=== PATIENT | male | born 1950 | race Caucasian/White ===

== ENCOUNTER 2017-11-12 14:04 | Inpatient (IN) | payer MEDICARE, MEDICAID ==
[~2017-11-12] VITALS: Ht 172.7 cm; Wt 73.0 kg
[~2017-11-12 14:04] MED LIST: BACTDSB PO
[2017-11-12 15:34] LABS: HEMATOCRIT 35.9 % (41-53); HEMOGLOBIN 12.4 g/dL (13.5-17.5); LYMPHOCYTES # (AUTO) 1.9 K/uL (1.0-4.8); LYMPHOCYTES % (AUTO) 19.8 % (22.0-44.0); MEAN CORPUSCULAR HEMOGLOBIN 30.6 pg (26.0-34.0); MEAN CORPUSCULAR HGB CONC 34.6 G/dL (31.0-37.0); MEAN CORPUSCULAR VOLUME 88 fL (80-100); MONOCYTES # (AUTO) 0.9 K/uL (0.1-1.0); MONOCYTES % (AUTO) 9.4 % (2.0-9.0); NEUTROPHILS # (AUTO) 5.7 K/uL (1.8-7.7); NEUTROPHILS % (AUTO) 60.8 % (40.0-70.0); PLATELET COUNT (AUTO) 214 K/uL (150-450); RED BLOOD CELL COUNT(AUTO) 4.06 MIL/uL (4.50-5.90); RED CELL DISTRIBUTION WIDTH 13.5 % (11.5-14.5)
[2017-11-12 15:49] LABS: ANION GAP 10 mmol/L (8-16); CALCIUM, TOTAL 8.7 mg/dL (8.8-10.5); CARBON DIOXIDE 23 mmol/L (22-29); CHLORIDE 105 mmol/L (98-107); CREATININE 1.62 mg/dL (0.60-1.30); GLOMERULAR FILTR. RATE CALC 42 mL/min (>60); GLUCOSE,RANDOM 96 mg/dL (70-110); POTASSIUM 4.9 mmol/L (3.5-5.1); SODIUM SERUM 138 mmol/L (136-145); UREA NITROGEN, BLOOD 39 mg/dL (7-18)
[2017-11-12] MEDS ORDERED: INSLAN SQ (15:50)
[2017-11-12] MEDS ORDERED: LISI-660 PO (15:50)
[2017-11-12 15:54] LABS: ALANINE AMINOTRANSFERASE 21 U/L (12-78); ALBUMIN 3.7 g/dL (3.4-5.0); ALKALINE PHOSPHATASE 74 U/L (46-116); ASPARTATE AMINOTRANSFERASE 15 U/L (15-37); BILIRUBIN,TOTAL 0.2 mg/dL (0.1-1.0); TOTAL PROTEIN, SERUM 7.6 g/dL (6.4-8.2)
[2017-11-12 16:57] LABS: GLUCOSE,POINT OF CARE 96 MG/DL (70-110)
[2017-11-12 17:20] LABS: AMPHET/METH SCREEN,URINE NEGATIVE (NEGATIVE); BARBITURATE SCREEN, URINE NEGATIVE (NEGATIVE); BENZODIAZEPINES SCREEN,URINE NEGATIVE (NEGATIVE); CANNABINOID SCREEN,URINE NEGATIVE (NEGATIVE); COCAINE SCREEN,URINE NEGATIVE (NEGATIVE); METHADONE SCREEN, URINE NEGATIVE (NEGATIVE); OPIATE SCREEN,URINE NEGATIVE (NEGATIVE)
[2017-11-12 17:21] LABS: PHENCYCLIDINE SCREEN,URINE NEGATIVE (NEGATIVE)
[2017-11-12] MEDS ORDERED: SULFAMETHOX/TRIMETH DS 800-160 MG/TABLET PO ONE (17:30)
[2017-11-12 18:20] LABS: APPEARANCE,URINE CLEAR (CLEAR); GLUCOSE, URINE (UA) NEGATIVE (NEGATIVE); OCCULT BLOOD,URINE TRACE (NEGATIVE); PH,URINE 5.5 (5.0-8.0); PROTEIN,URINE SEE CONFIRM (NEGATIVE)
[2017-11-12 18:21] LABS: BILIRUBIN,URINE NEGATIVE (NEGATIVE); KETONES,URINE NEGATIVE (NEGATIVE); LEUKOCYTE ESTERASE ,URINE NEGATIVE (NEGATIVE); NITRATE,URINE NEGATIVE (NEGATIVE); UROBILINOGEN,URINE 0.2 mg/dL (<=1.0)
[2017-11-12] MEDS ORDERED: ZOLPIDEM TARTRATE 10 MG TABLET PO PRN (18:30)
[2017-11-12] MEDS ORDERED: HALOPERIDOL 5 MG TABLET PO PRN (18:30)
[2017-11-12] MEDS ORDERED: LORazepam 2 MG TABLET PO PRN (18:30)
[2017-11-12 19:30] VITALS: BP 130/72
[2017-11-12 19:52] LABS: SULFOSALICYLIC ACID,URINE Negative (Negative)
[2017-11-12 19:53] LABS: BACTERIA,URINE None Seen /HPF (None Seen); RBC,URINE 0-2 /HPF (0-2); SQUAMOUS EPITHELIAL CELL,UR Rare /LPF (None Seen); WBC,URINE 0-2 /HPF (0-5)
[2017-11-12] MEDS ORDERED: ACETAMINOPHEN 325 MG TABLET PO PRN (20:00)
[2017-11-12] MEDS ORDERED: ALBUTEROL SULFATE HFA 90 MCG/PUFF 8 GM INHALER IH PRN (20:00)
[2017-11-12] MEDS ORDERED: BACITRACIN 28.4 GM OINTMENT TP PRN (20:00)
[2017-11-12] MEDS ORDERED: LOPERAMIDE HCL 2 MG CAPSULE PO PRN (20:00)
[2017-11-12] MEDS ORDERED: CloNIDine HCL 0.1 MG TABLET PO PRN (20:00)
[2017-11-12] MEDS ORDERED: ONDANSETRON HCL 4 MG TABLET PO PRN (20:00)
[2017-11-12] MEDS ORDERED: BENZOCAINE/MENTHOL LOZENGE MM PRN (20:00)
[2017-11-12] MEDS ORDERED: MAGNESIUM HYDROXIDE SUSPENSION 30 ML UDCUP PO PRN (20:00)
[2017-11-12] MEDS ORDERED: MAG HYDROX/AL HYDROX/SIMETH ES 30 ML SUSPENSION UDCUP PO PRN (20:00)
[2017-11-12] MEDS ORDERED: PETROLATUM,WHITE 71 GM JELLY TP PRN (20:00)
[2017-11-12] MEDS ORDERED: IBUPROFEN 600 MG TABLET PO PRN (20:00)
[2017-11-13] MEDS ORDERED: DEXTROSE 50%-WATER 25 GM/50 ML SYRINGE IVP PRN (08:15)
[2017-11-13] MEDS: DOCUSATE SODIUM 100 MG CAPSULE PO SCH (09:00)
[2017-11-13] MEDS: OMEPRAZOLE 20 MG CAPSULE PO SCH (09:41)
[2017-11-13] MEDS: LISINOPRIL 5 MG TABLET PO SCH (09:41)
[2017-11-13] MEDS: SULFAMETHOX/TRIMETH DS 800-160 MG/TABLET PO SCH ×2 (09:42→16:56)
[2017-11-13] MEDS: MUPIROCIN CALCIUM 2% 22 GM OINTMENT TP SCH ×2 (09:43→16:56)
[2017-11-13 09:50] VITALS: BP 151/68
[2017-11-13 11:38] LABS: GLUCOMETER DEV NAME(LOC) 3EX 1; GLUCOSE,POINT OF CARE 128 MG/DL (70-110)
[2017-11-13 16:53] LABS: GLUCOMETER DEV NAME(LOC) 3EX 1; GLUCOSE,POINT OF CARE 114 MG/DL (70-110)
[2017-11-13 17:00] VITALS: BP 138/70
[2017-11-13 20:32] LABS: GLUCOMETER DEV NAME(LOC) 3EX 1; GLUCOSE,POINT OF CARE 122 MG/DL (70-110)
[2017-11-14 06:48] LABS: GLUCOMETER DEV NAME(LOC) 3EX 1; GLUCOSE,POINT OF CARE 162 MG/DL (70-110)
[2017-11-14] MEDS: INSULIN LISPRO 100 UNITS/ML SQ PRN (07:07)
[2017-11-14 07:16] LABS: HEMOGLOBIN A1C 7.3 % (4.5-6.2)
[2017-11-14 07:25] LABS: CALCIUM, TOTAL 8.8 mg/dL (8.8-10.5); CHOL/HDL RATIO 4.8 (4.2-7.3); CREATININE 1.6 mg/dL (0.60-1.30); POTASSIUM 4.9 mmol/L (3.5-5.1); THYROID STIMULATING HORMONE 2.43 uIU/mL (0.36-3.74)
[2017-11-14 09:00] VITALS: BP 101/58
[2017-11-14] MEDS: SULFAMETHOX/TRIMETH DS 800-160 MG/TABLET PO SCH ×2 (09:00→16:05)
[2017-11-14] MEDS: LISINOPRIL 5 MG TABLET PO SCH (09:00)
[2017-11-14] MEDS: DOCUSATE SODIUM 100 MG CAPSULE PO SCH (09:00)
[2017-11-14] MEDS: MULTIVITAMINS WITH MINERALS, THERAPEUTIC TABLET PO SCH (09:00)
[2017-11-14] MEDS: OMEPRAZOLE 20 MG CAPSULE PO SCH (09:00)
[2017-11-14] MEDS: MUPIROCIN CALCIUM 2% 22 GM OINTMENT TP SCH ×2 (09:00→16:06)
[2017-11-14 12:03] LABS: GLUCOMETER DEV NAME(LOC) 3EX 1; GLUCOSE,POINT OF CARE 128 MG/DL (70-110)
[2017-11-14 16:00] VITALS: BP 125/56
[2017-11-14 16:13] LABS: GLUCOMETER DEV NAME(LOC) 3EX 1; GLUCOSE,POINT OF CARE 178 MG/DL (70-110)
[2017-11-14 20:37] LABS: GLUCOMETER DEV NAME(LOC) 3EX 1; GLUCOSE,POINT OF CARE 143 MG/DL (70-110)
[2017-11-15 06:28] LABS: GLUCOMETER DEV NAME(LOC) 3EX 1; GLUCOSE,POINT OF CARE 134 MG/DL (70-110)
[2017-11-15 06:42] LABS: % IRON SATURATION 29.1 % (30-44)
[2017-11-15] MEDS: INSULIN LISPRO 100 UNITS/ML SQ PRN (07:01)
[2017-11-15 08:12] VITALS: BP 112/60
[2017-11-15] MEDS: SULFAMETHOX/TRIMETH DS 800-160 MG/TABLET PO SCH ×2 (08:28→16:35)
[2017-11-15] MEDS: CHOLECALCIFEROL (VIT D3) 1,000 UNITS TABLET PO SCH (08:28)
[2017-11-15] MEDS: DOCUSATE SODIUM 100 MG CAPSULE PO SCH (08:28)
[2017-11-15] MEDS: LISINOPRIL 5 MG TABLET PO SCH (08:28)
[2017-11-15] MEDS: OMEPRAZOLE 20 MG CAPSULE PO SCH (08:28)
[2017-11-15] MEDS: ESCITALOPRAM OXALATE 10 MG TABLET PO SCH (08:28)
[2017-11-15] MEDS: MULTIVITAMINS WITH MINERALS, THERAPEUTIC TABLET PO SCH (08:28)
[2017-11-15] MEDS: MUPIROCIN CALCIUM 2% 22 GM OINTMENT TP SCH ×2 (08:39→16:35)
[2017-11-15 11:27] LABS: GLUCOMETER DEV NAME(LOC) 3EX 1; GLUCOSE,POINT OF CARE 116 MG/DL (70-110)
[2017-11-15 17:17] LABS: GLUCOMETER DEV NAME(LOC) 3EX 1; GLUCOSE,POINT OF CARE 119 MG/DL (70-110)
[2017-11-15 17:31] VITALS: BP 121/64
[2017-11-15 20:23] LABS: GLUCOMETER DEV NAME(LOC) 3EX 1; GLUCOSE,POINT OF CARE 152 MG/DL (70-110)
[2017-11-16 05:28] LABS: GLUCOMETER DEV NAME(LOC) 3EX 1; GLUCOSE,POINT OF CARE 138 MG/DL (70-110)
[2017-11-16 08:02] VITALS: BP 118/79
[2017-11-16] MEDS: ESCITALOPRAM OXALATE 10 MG TABLET PO SCH (08:36)
[2017-11-16] MEDS: SULFAMETHOX/TRIMETH DS 800-160 MG/TABLET PO SCH ×2 (08:37→16:19)
[2017-11-16] MEDS: MULTIVITAMINS WITH MINERALS, THERAPEUTIC TABLET PO SCH (08:37)
[2017-11-16] MEDS: LISINOPRIL 5 MG TABLET PO SCH (08:37)
[2017-11-16] MEDS: CHOLECALCIFEROL (VIT D3) 1,000 UNITS TABLET PO SCH (08:37)
[2017-11-16] MEDS: DOCUSATE SODIUM 100 MG CAPSULE PO SCH (08:37)
[2017-11-16] MEDS: OMEPRAZOLE 20 MG CAPSULE PO SCH (09:00)
[2017-11-16] MEDS: MUPIROCIN CALCIUM 2% 22 GM OINTMENT TP SCH ×2 (09:02→16:19)
[2017-11-16 11:22] LABS: GLUCOMETER DEV NAME(LOC) 3EX 1; GLUCOSE,POINT OF CARE 110 MG/DL (70-110)
[2017-11-16 17:46] VITALS: BP 128/66
[2017-11-17 03:59] VITALS: BP 137/75
[2017-11-17 06:28] LABS: GLUCOMETER DEV NAME(LOC) 3EX 1; GLUCOSE,POINT OF CARE 158 MG/DL (70-110)
[2017-11-17] MEDS: INSULIN LISPRO 100 UNITS/ML SQ PRN ×2 (06:43→11:26)
[2017-11-17] MEDS: DOCUSATE SODIUM 100 MG CAPSULE PO SCH (08:46)
[2017-11-17] MEDS: SULFAMETHOX/TRIMETH DS 800-160 MG/TABLET PO SCH (08:46)
[2017-11-17] MEDS: OMEPRAZOLE 20 MG CAPSULE PO SCH (08:46)
[2017-11-17] MEDS: LISINOPRIL 5 MG TABLET PO SCH (08:46)
[2017-11-17] MEDS: MULTIVITAMINS WITH MINERALS, THERAPEUTIC TABLET PO SCH (08:47)
[2017-11-17] MEDS: CHOLECALCIFEROL (VIT D3) 1,000 UNITS TABLET PO SCH (08:47)
[2017-11-17] MEDS: ESCITALOPRAM OXALATE 10 MG TABLET PO SCH (08:49)
[2017-11-17] MEDS: MUPIROCIN CALCIUM 2% 22 GM OINTMENT TP SCH ×2 (08:51→16:56)
[2017-11-17 11:28] LABS: GLUCOMETER DEV NAME(LOC) 3EX 1; GLUCOSE,POINT OF CARE 154 MG/DL (70-110)
[2017-11-17] MEDS: GlipiZIDE 5 MG TABLET PO SCH (16:53)
[2017-11-17 19:25] VITALS: BP 144/68
[2017-11-18 03:31] VITALS: BP 167/73
[2017-11-18 06:44] LABS: CALCIUM, TOTAL 9.1 mg/dL (8.8-10.5); CREATININE 1.64 mg/dL (0.60-1.30); POTASSIUM 4.8 mmol/L (3.5-5.1)
[2017-11-18] MEDS: GlipiZIDE 5 MG TABLET PO SCH ×3 (06:46→20:08)
[2017-11-18] MEDS: INSULIN LISPRO 100 UNITS/ML SQ PRN (06:48)
[2017-11-18 07:02] LABS: GLUCOMETER DEV NAME(LOC) 3EX 1; GLUCOSE,POINT OF CARE 147 MG/DL (70-110)
[2017-11-18] MEDS: DOCUSATE SODIUM 100 MG CAPSULE PO SCH (08:13)
[2017-11-18] MEDS: ESCITALOPRAM OXALATE 20 MG TABLET PO SCH (08:13)
[2017-11-18] MEDS: MULTIVITAMINS WITH MINERALS, THERAPEUTIC TABLET PO SCH (08:14)
[2017-11-18] MEDS: OMEPRAZOLE 20 MG CAPSULE PO SCH (08:18)
[2017-11-18] MEDS: LISINOPRIL 5 MG TABLET PO SCH (08:18)
[2017-11-18] MEDS: CHOLECALCIFEROL (VIT D3) 1,000 UNITS TABLET PO SCH (08:18)
[2017-11-18] MEDS: MUPIROCIN CALCIUM 2% 22 GM OINTMENT TP SCH ×2 (08:35→17:00)
[2017-11-18 14:05] VITALS: BP 145/72
[2017-11-19 01:22] VITALS: BP 112/68
[2017-11-19 06:33] LABS: GLUCOMETER DEV NAME(LOC) 3EX 1; GLUCOSE,POINT OF CARE 140 MG/DL (70-110)
[2017-11-19] MEDS: GlipiZIDE 5 MG TABLET PO SCH ×2 (07:02→17:29)
[2017-11-19] MEDS: INSULIN LISPRO 100 UNITS/ML SQ PRN ×2 (07:03→12:13)
[2017-11-19 09:00] VITALS: BP 122/58
[2017-11-19] MEDS: DOCUSATE SODIUM 100 MG CAPSULE PO SCH (10:04)
[2017-11-19] MEDS: CHOLECALCIFEROL (VIT D3) 1,000 UNITS TABLET PO SCH (10:04)
[2017-11-19] MEDS: OMEPRAZOLE 20 MG CAPSULE PO SCH (10:04)
[2017-11-19] MEDS: MULTIVITAMINS WITH MINERALS, THERAPEUTIC TABLET PO SCH (10:04)
[2017-11-19] MEDS: ESCITALOPRAM OXALATE 20 MG TABLET PO SCH (10:04)
[2017-11-19] MEDS: LISINOPRIL 5 MG TABLET PO SCH (10:04)
[2017-11-19] MEDS: MUPIROCIN CALCIUM 2% 22 GM OINTMENT TP SCH ×2 (10:05→17:29)
[2017-11-19 12:09] LABS: GLUCOMETER DEV NAME(LOC) 3EX 1; GLUCOSE,POINT OF CARE 141 MG/DL (70-110)
[2017-11-19 17:13] VITALS: BP 113/50
[2017-11-20] MEDS: GlipiZIDE 5 MG TABLET PO SCH ×2 (06:45→16:16)
[2017-11-20] MEDS: DOCUSATE SODIUM 100 MG CAPSULE PO SCH (09:00)
[2017-11-20] MEDS: CHOLECALCIFEROL (VIT D3) 1,000 UNITS TABLET PO SCH (09:24)
[2017-11-20] MEDS: OMEPRAZOLE 20 MG CAPSULE PO SCH (09:24)
[2017-11-20] MEDS: MULTIVITAMINS WITH MINERALS, THERAPEUTIC TABLET PO SCH (09:24)
[2017-11-20] MEDS: LISINOPRIL 5 MG TABLET PO SCH (09:24)
[2017-11-20] MEDS: ESCITALOPRAM OXALATE 20 MG TABLET PO SCH (09:24)
[2017-11-20] MEDS: MUPIROCIN CALCIUM 2% 22 GM OINTMENT TP SCH ×2 (09:25→16:16)
[2017-11-20] MEDS: BACITRACIN 28.4 GM OINTMENT TP SCH ×2 (09:29→16:16)
[2017-11-20] MEDS: INSULIN LISPRO 100 UNITS/ML SQ PRN (12:05)
[2017-11-21 02:46] VITALS: BP 119/68
[2017-11-21] MEDS: GlipiZIDE 5 MG TABLET PO SCH (06:51)
[2017-11-21] MEDS: CHOLECALCIFEROL (VIT D3) 1,000 UNITS TABLET PO SCH (08:30)
[2017-11-21] MEDS: ESCITALOPRAM OXALATE 20 MG TABLET PO SCH (08:30)
[2017-11-21] MEDS: LISINOPRIL 5 MG TABLET PO SCH (08:31)
[2017-11-21] MEDS: DOCUSATE SODIUM 100 MG CAPSULE PO SCH (08:37)
[2017-11-21] MEDS: OMEPRAZOLE 20 MG CAPSULE PO SCH (08:37)
[2017-11-21] MEDS ORDERED: MULTIVITAMINS WITH IRON TABLET PO SCH (09:00)
[2017-11-21] MEDS: MUPIROCIN CALCIUM 2% 22 GM OINTMENT TP SCH (09:30)
[2017-11-21] MEDS: BACITRACIN 28.4 GM OINTMENT TP SCH (09:30)
[2017-11-21] MEDS ORDERED: ESCI20TA PO (09:40)
[2017-11-21] MEDS ORDERED: VITAD1000 PO (09:41)
[2017-11-21] MEDS ORDERED: BACI120O TP (09:41)
[2017-11-21] MEDS ORDERED: GLIP5 PO (09:42)
[2017-11-21] MEDS ORDERED: DSS100 PO (09:42)
[2017-11-21] MEDS ORDERED: MUPI15CR TP (09:43)
[2017-11-21] MEDS ORDERED: MVITFE PO (09:43)
[2017-11-21] MEDS ORDERED: OMEP20 PO (09:44)
== END 2017-11-21 11:00 | disposition home or self-care (01) | DRG 885 ==
LOC: EMS 14:13 → 3EI 18:36 → EMS 19:10
PROVIDERS: ADMIT Psychiatry & Neurology Psychiatry; ATTEND Psychiatry & Neurology Psychiatry
DX: F33.3 Major depressive disorder, recurrent, severe with psychotic symptoms (principal); N17.9 Acute kidney failure, unspecified; K86.1 Other chronic pancreatitis; E83.51 Hypocalcemia; E11.9 Type 2 diabetes mellitus without complications; R45.851 Suicidal ideations; I10 Essential (primary) hypertension; M19.90 Unspecified osteoarthritis, unspecified site; F41.9 Anxiety disorder, unspecified; K21.9 Gastro-esophageal reflux disease without esophagitis; L08.9 Local infection of the skin and subcutaneous tissue, unspecified; E86.0 Dehydration; Z79.4 Long term (current) use of insulin; Z59.0 Homelessness
CPT/HCPCS: 82306; 83036; 83540; 83550; 84443; 99285; G0480

== ENCOUNTER 2017-12-19 17:27 | Inpatient (IN) | payer MEDICARE, MEDICAID ==
[~2017-12-19] VITALS: Ht 172.7 cm; Wt 74.4 kg
[~2017-12-19 17:27] MED LIST changes: +BACI120O TP; -BACTDSB PO; +DSS100 PO; +ESCI20TA PO; +GLIP5 PO; +LISI-660 PO; +MUPI15CR TP; +MVITFE PO; +OMEP20 PO; +VITAD1000 PO
[2017-12-19] MEDS ORDERED: ZOLPIDEM TARTRATE 10 MG TABLET PO PRN (19:30)
[2017-12-19] MEDS ORDERED: HALOPERIDOL 5 MG TABLET PO PRN (19:30)
[2017-12-19] MEDS ORDERED: LORazepam 2 MG TABLET PO PRN (19:30)
[2017-12-19 20:00] VITALS: BP 141/74
[2017-12-19 20:01] VITALS: BP 141/73
[2017-12-19] MEDS ORDERED: PNEUMOCOCCAL VACCINE POLYVALENT 0.5 ML VIAL [PPSV23] IM ONE (20:15)
[2017-12-19 20:38] LABS: GLUCOMETER DEV NAME(LOC) BV2N3; GLUCOSE,POINT OF CARE 140 MG/DL (70-110)
[2017-12-19] MEDS ORDERED: INSULIN LISPRO 100 UNITS/ML SQ PRN (22:15)
[2017-12-19] MEDS ORDERED: DEXTROSE 50%-WATER 25 GM/50 ML SYRINGE IVP PRN (22:15)
[2017-12-19] MEDS ORDERED: GLUCAGON,HUMAN RECOMBINANT 1 MG VIAL IM PRN (22:30)
[2017-12-20 01:10] VITALS: BP 138/71
[2017-12-20] MEDS: INSULIN LISPRO 100 UNITS/ML SQ PRN ×4 (06:33→20:13)
[2017-12-20 06:35] LABS: GLUCOMETER DEV NAME(LOC) BV2N3; GLUCOSE,POINT OF CARE 151 MG/DL (70-110)
[2017-12-20 07:47] LABS: BASOPHILS % (AUTO) 0.4 % (0.0-2.0); EOSINOPHILS % (AUTO) 5.3 % (1.0-6.0); HEMATOCRIT 33.5 % (41-53); HEMOGLOBIN 12.1 g/dL (13.5-17.5); LYMPHOCYTES # (AUTO) 2.9 K/uL (1.0-4.8); LYMPHOCYTES % (AUTO) 28.7 % (22.0-44.0); MEAN CORPUSCULAR HEMOGLOBIN 31.8 pg (26.0-34.0); MEAN CORPUSCULAR VOLUME 89 fL (80-100); MONOCYTES # (AUTO) 1.2 K/uL (0.1-1.0); MONOCYTES % (AUTO) 11.6 % (2.0-9.0); NEUTROPHILS # (AUTO) 5.5 K/uL (1.8-7.7); PLATELET COUNT (AUTO) 201 K/uL (150-450); RED BLOOD CELL COUNT(AUTO) 3.79 MIL/uL (4.50-5.90); RED CELL DISTRIBUTION WIDTH 13.6 % (11.5-14.5)
[2017-12-20 08:08] LABS: HEMOGLOBIN A1C 7.2 % (4.5-6.2)
[2017-12-20 08:19] LABS: ALBUMIN 3.3 g/dL (3.4-5.0); BILIRUBIN,TOTAL 0.2 mg/dL (0.1-1.0); CALCIUM, TOTAL 8.8 mg/dL (8.8-10.5); CHOL/HDL RATIO 5.5 (4.2-7.3); CREATININE 1.24 mg/dL (0.60-1.30); FREE T4 (FREE THYROXINE) 0.74 ng/dL (0.76-1.46); POTASSIUM 4.3 mmol/L (3.5-5.1); THYROID STIMULATING HORMONE 0.79 uIU/mL (0.36-3.74); TOTAL PROTEIN, SERUM 6.3 g/dL (6.4-8.2)
[2017-12-20 08:27] VITALS: BP 145/69
[2017-12-20] MEDS: ESCITALOPRAM OXALATE 20 MG TABLET PO SCH (11:22)
[2017-12-20] MEDS ORDERED: DOCUSATE SODIUM 100 MG CAPSULE PO PRN (11:30)
[2017-12-20] MEDS ORDERED: MAGNESIUM HYDROXIDE SUSPENSION 30 ML UDCUP PO PRN (11:30)
[2017-12-20] MEDS ORDERED: ALBUTEROL SULFATE HFA 90 MCG/PUFF 8 GM INHALER IH PRN (11:30)
[2017-12-20] MEDS ORDERED: PETROLATUM,WHITE 71 GM JELLY TP PRN (11:30)
[2017-12-20] MEDS ORDERED: MAG HYDROX/AL HYDROX/SIMETH ES 30 ML SUSPENSION UDCUP PO PRN (11:30)
[2017-12-20] MEDS ORDERED: IBUPROFEN 400 MG TABLET PO PRN (11:30)
[2017-12-20] MEDS ORDERED: ONDANSETRON HCL 4 MG TABLET PO PRN (11:30)
[2017-12-20] MEDS ORDERED: ACETAMINOPHEN 325 MG TABLET PO PRN (11:30)
[2017-12-20 11:44] LABS: GLUCOMETER DEV NAME(LOC) BV2N3; GLUCOSE,POINT OF CARE 200 MG/DL (70-110)
[2017-12-20 16:44] LABS: GLUCOMETER DEV NAME(LOC) BV2N3; GLUCOSE,POINT OF CARE 203 MG/DL (70-110)
[2017-12-20] MEDS: GlipiZIDE 5 MG TABLET PO SCH (16:44)
[2017-12-20 20:49] LABS: GLUCOMETER DEV NAME(LOC) BV2N3; GLUCOSE,POINT OF CARE 203 MG/DL (70-110)
[2017-12-21] MEDS: GlipiZIDE 5 MG TABLET PO SCH ×2 (06:33→16:28)
[2017-12-21] MEDS: LEVOTHYROXINE SODIUM 25 MCG TABLET PO SCH (06:33)
[2017-12-21 06:39] LABS: GLUCOMETER DEV NAME(LOC) BV2N3; GLUCOSE,POINT OF CARE 154 MG/DL (70-110)
[2017-12-21] MEDS: INSULIN LISPRO 100 UNITS/ML SQ PRN ×3 (06:51→20:32)
[2017-12-21 08:15] VITALS: BP 136/61
[2017-12-21] MEDS: MULTIVITAMINS WITH IRON TABLET PO SCH (08:45)
[2017-12-21] MEDS: LISINOPRIL 5 MG TABLET PO SCH (08:45)
[2017-12-21] MEDS: CHOLECALCIFEROL (VIT D3) 1,000 UNITS TABLET PO SCH (08:45)
[2017-12-21] MEDS: ESCITALOPRAM OXALATE 20 MG TABLET PO SCH (08:45)
[2017-12-21] MEDS: OMEPRAZOLE 20 MG CAPSULE PO SCH (08:54)
[2017-12-21 11:18] LABS: GLUCOMETER DEV NAME(LOC) BV2N3; GLUCOSE,POINT OF CARE 96 MG/DL (70-110)
[2017-12-21 16:49] LABS: GLUCOMETER DEV NAME(LOC) BV2N3; GLUCOSE,POINT OF CARE 155 MG/DL (70-110)
[2017-12-21 20:39] LABS: GLUCOMETER DEV NAME(LOC) BV2N3; GLUCOSE,POINT OF CARE 164 MG/DL (70-110)
[2017-12-22 02:02] VITALS: BP 140/69
[2017-12-22 06:29] LABS: GLUCOMETER DEV NAME(LOC) BV2N3; GLUCOSE,POINT OF CARE 137 MG/DL (70-110)
[2017-12-22] MEDS: LEVOTHYROXINE SODIUM 25 MCG TABLET PO SCH (07:11)
[2017-12-22] MEDS: GlipiZIDE 5 MG TABLET PO SCH ×2 (07:11→16:34)
[2017-12-22 08:19] VITALS: BP 122/66
[2017-12-22] MEDS: ESCITALOPRAM OXALATE 20 MG TABLET PO SCH (08:38)
[2017-12-22] MEDS: LISINOPRIL 5 MG TABLET PO SCH (08:38)
[2017-12-22] MEDS: MULTIVITAMINS WITH IRON TABLET PO SCH (08:38)
[2017-12-22] MEDS: CHOLECALCIFEROL (VIT D3) 1,000 UNITS TABLET PO SCH (08:39)
[2017-12-22] MEDS: OMEPRAZOLE 20 MG CAPSULE PO SCH (08:44)
[2017-12-22] MEDS: INSULIN LISPRO 100 UNITS/ML SQ PRN ×3 (11:08→20:35)
[2017-12-22 11:18] LABS: GLUCOMETER DEV NAME(LOC) BV2N3; GLUCOSE,POINT OF CARE 177 MG/DL (70-110)
[2017-12-22 16:06] VITALS: BP 120/72
[2017-12-22 16:29] LABS: GLUCOMETER DEV NAME(LOC) BV2N3; GLUCOSE,POINT OF CARE 185 MG/DL (70-110)
[2017-12-22 20:19] LABS: GLUCOMETER DEV NAME(LOC) BV2N3; GLUCOSE,POINT OF CARE 152 MG/DL (70-110)
[2017-12-23 06:18] LABS: GLUCOMETER DEV NAME(LOC) BV2N3; GLUCOSE,POINT OF CARE 113 MG/DL (70-110)
[2017-12-23] MEDS: GlipiZIDE 5 MG TABLET PO SCH (06:24)
[2017-12-23] MEDS: LEVOTHYROXINE SODIUM 25 MCG TABLET PO SCH (06:24)
[2017-12-23 08:25] VITALS: BP 100/61
[2017-12-23] MEDS: LISINOPRIL 5 MG TABLET PO SCH (09:00)
[2017-12-23] MEDS: OMEPRAZOLE 20 MG CAPSULE PO SCH (09:00)
[2017-12-23] MEDS: CHOLECALCIFEROL (VIT D3) 1,000 UNITS TABLET PO SCH (09:22)
[2017-12-23] MEDS: MULTIVITAMINS WITH IRON TABLET PO SCH (09:22)
[2017-12-23] MEDS: ESCITALOPRAM OXALATE 20 MG TABLET PO SCH (09:22)
[2017-12-23] MEDS ORDERED: LEVO25TA9 PO (10:03)
== END 2017-12-23 13:30 | disposition home or self-care (01) | DRG 881 ==
LOC: B2X 19:42
PROVIDERS: ATTEND Psychiatry & Neurology Psychiatry
DX: F32.9 Major depressive disorder, single episode, unspecified (principal); E55.9 Vitamin D deficiency, unspecified; E11.9 Type 2 diabetes mellitus without complications; E03.9 Hypothyroidism, unspecified; D64.9 Anemia, unspecified; F41.9 Anxiety disorder, unspecified; I10 Essential (primary) hypertension; K21.9 Gastro-esophageal reflux disease without esophagitis; K59.00 Constipation, unspecified; M19.90 Unspecified osteoarthritis, unspecified site; Z59.0 Homelessness; Z79.899 Other long term (current) drug therapy
CPT/HCPCS: 83036; 84439; 84443; 87081

== ENCOUNTER 2019-07-16 11:35 | Inpatient (IN) | payer MEDICAID, MEDICARE ==
[~2019-07-16] VITALS: Ht 172.7 cm; Wt 78.2 kg
[~2019-07-16 11:35] MED LIST changes: -BACI120O TP; +CHOL100018 PO; -DSS100 PO; +LEVO25TA9 PO; -MUPI15CR TP; -VITAD1000 PO
[2019-07-16 14:20] LABS: BASOPHILS % (AUTO) 0.5 % (0.0-2.0); EOSINOPHILS % (AUTO) 2.4 % (1.0-6.0); HEMATOCRIT 32.1 % (41-53); HEMOGLOBIN 10.8 g/dL (13.5-17.5); LYMPHOCYTES # (AUTO) 2.5 K/uL (1.0-4.8); LYMPHOCYTES % (AUTO) 27.6 % (22.0-44.0); MEAN CORPUSCULAR HEMOGLOBIN 29.8 pg (26.0-34.0); MEAN CORPUSCULAR HGB CONC 33.5 G/dL (31.0-37.0); MEAN CORPUSCULAR VOLUME 89 fL (80-100); MONOCYTES # (AUTO) 0.9 K/uL (0.1-1.0); MONOCYTES % (AUTO) 10.4 % (2.0-9.0); NEUTROPHILS # (AUTO) 5.3 K/uL (1.8-7.7); NEUTROPHILS % (AUTO) 59.1 % (40.0-70.0); PLATELET COUNT (AUTO) 241 K/uL (150-450); RED BLOOD CELL COUNT(AUTO) 3.61 MIL/uL (4.50-5.90); RED CELL DISTRIBUTION WIDTH 13.4 % (11.5-14.5)
[2019-07-16 14:29] LABS: AMPHET/METH SCREEN,URINE NEGATIVE (NEGATIVE); BARBITURATE SCREEN, URINE NEGATIVE (NEGATIVE); BENZODIAZEPINES SCREEN,URINE NEGATIVE (NEGATIVE); CANNABINOID SCREEN,URINE NEGATIVE (NEGATIVE); COCAINE SCREEN,URINE NEGATIVE (NEGATIVE); METHADONE SCREEN, URINE NEGATIVE (NEGATIVE); OPIATE SCREEN,URINE NEGATIVE (NEGATIVE)
[2019-07-16 14:30] LABS: PHENCYCLIDINE SCREEN,URINE NEGATIVE (NEGATIVE)
[2019-07-16 14:32] LABS: ANION GAP 14 mmol/L (8-16); CALCIUM, TOTAL 8.9 mg/dL (8.8-10.5); CARBON DIOXIDE 22 mmol/L (22-29); CHLORIDE 104 mmol/L (98-107); CREATININE 1.58 mg/dL (0.60-1.30); GLOMERULAR FILTR. RATE CALC 44 mL/min (>60); GLUCOSE,RANDOM 219 mg/dL (70-110); POTASSIUM 3.7 mmol/L (3.5-5.1); SODIUM SERUM 140 mmol/L (136-145); UREA NITROGEN, BLOOD 44 mg/dL (7-18)
[2019-07-16 14:39] LABS: ALANINE AMINOTRANSFERASE 18 U/L (12-78); ALBUMIN 3.5 g/dL (3.4-5.0); ALKALINE PHOSPHATASE 78 U/L (46-116); ASPARTATE AMINOTRANSFERASE 11 U/L (15-37); BILIRUBIN,TOTAL 0.2 mg/dL (0.1-1.0); TOTAL PROTEIN, SERUM 7.1 g/dL (6.4-8.2)
[2019-07-16] MEDS ORDERED: HALOPERIDOL 5 MG TABLET PO PRN (16:45)
[2019-07-16] MEDS ORDERED: LORazepam 2 MG TABLET PO PRN (16:45)
[2019-07-16] MEDS ORDERED: ZOLPIDEM TARTRATE 10 MG TABLET PO PRN (16:45)
[2019-07-16 19:08] VITALS: BP 171/86
[2019-07-16] MEDS ORDERED: OLANZapine 5 MG TABLET PO PRN (20:45)
[2019-07-17 08:42] VITALS: BP 153/68
[2019-07-17 08:48] LABS: CHOL/HDL RATIO 7.3 (4.2-7.3)
[2019-07-17 16:00] VITALS: BP 147/78
[2019-07-17] MEDS: SERTRALINE HCL 50 MG TABLET PO SCH (20:40)
[2019-07-18 09:57] VITALS: BP 106/73
[2019-07-18 16:00] VITALS: BP 142/66
[2019-07-18 16:05] VITALS: BP 142/66
[2019-07-18] MEDS: SERTRALINE HCL 50 MG TABLET PO SCH (20:25)
[2019-07-19] MEDS ORDERED: GLUCAGON,HUMAN RECOMBINANT 1 MG VIAL IM PRN (14:00)
[2019-07-19] MEDS ORDERED: INSULIN LISPRO 100 UNITS/ML SQ PRN (14:00)
[2019-07-19] MEDS ORDERED: DEXTROSE 50%-WATER 25 GM/50 ML SYRINGE IVP PRN (14:15)
[2019-07-19] MEDS: SERTRALINE HCL 50 MG TABLET PO SCH (20:59)
[2019-07-20 10:26] VITALS: BP 124/77
[2019-07-20 17:02] VITALS: BP 143/73
[2019-07-20] MEDS: SERTRALINE HCL 100 MG TABLET PO SCH (20:30)
[2019-07-20] MEDS: ROSUVASTATIN CALCIUM 10 MG TABLET PO SCH (20:30)
[2019-07-21 07:40] LABS: FREE T4 (FREE THYROXINE) 0.71 ng/dL (0.76-1.46); MAGNESIUM 1.8 mg/dL (1.80-2.40); THYROID STIMULATING HORMONE 1.01 uIU/mL (0.36-3.74)
[2019-07-21 08:26] VITALS: BP 146/94
[2019-07-21] MEDS ORDERED: LACTULOSE 20 GM/30 ML SOLUTION UDCUP PO PRN (11:45)
[2019-07-21] MEDS: BISACODYL 5 MG EC TABLET PO PRN (12:51)
[2019-07-21] MEDS: DOCUSATE SODIUM 250 MG CAPSULE PO SCH ×2 (16:20→17:00)
[2019-07-21 17:03] LABS: GLUCOMETER DEV NAME(LOC) 3EX.; GLUCOSE,POINT OF CARE 139 MG/DL (70-110)
[2019-07-21] MEDS: SERTRALINE HCL 100 MG TABLET PO SCH (20:53)
[2019-07-21] MEDS: ROSUVASTATIN CALCIUM 10 MG TABLET PO SCH (20:54)
[2019-07-22 13:34] VITALS: BP 152/71
[2019-07-22] MEDS: INSULIN LISPRO 100 UNITS/ML SQ PRN (14:46)
[2019-07-22] MEDS: SERTRALINE HCL 100 MG TABLET PO SCH (20:19)
[2019-07-22] MEDS: ROSUVASTATIN CALCIUM 10 MG TABLET PO SCH (20:20)
[2019-07-22] MEDS ORDERED: ATORVASTATIN CALCIUM 10 MG TABLET PO SCH (21:00)
[2019-07-23] MEDS: GlipiZIDE 5 MG TABLET PO SCH (06:49)
[2019-07-23] MEDS: DOCUSATE SODIUM 250 MG CAPSULE PO SCH ×3 (08:25→17:00)
[2019-07-23] MEDS: MULTIVITAMINS WITH MINERALS, THERAPEUTIC TABLET PO SCH (08:25)
[2019-07-23 08:33] VITALS: BP 131/67
[2019-07-23] MEDS ORDERED: LISINOPRIL 10 MG TABLET PO SCH (09:00)
[2019-07-23] MEDS: BISACODYL 5 MG EC TABLET PO PRN (16:26)
[2019-07-23 17:32] VITALS: BP 90/57
[2019-07-23] MEDS: SERTRALINE HCL 100 MG TABLET PO SCH (20:29)
[2019-07-23] MEDS: ROSUVASTATIN CALCIUM 10 MG TABLET PO SCH (20:29)
[2019-07-24] MEDS: GlipiZIDE 5 MG TABLET PO SCH (06:59)
[2019-07-24 09:09] LABS: CALCIUM, TOTAL 8.3 mg/dL (8.8-10.5); CREATININE 2.17 mg/dL (0.60-1.30); POTASSIUM 4.5 mmol/L (3.5-5.1)
[2019-07-24] MEDS: DOCUSATE SODIUM 250 MG CAPSULE PO SCH ×2 (09:41→16:52)
[2019-07-24] MEDS: MULTIVITAMINS WITH MINERALS, THERAPEUTIC TABLET PO SCH (09:41)
[2019-07-24] MEDS: SERTRALINE HCL 100 MG TABLET PO SCH (20:54)
[2019-07-24] MEDS: ROSUVASTATIN CALCIUM 10 MG TABLET PO SCH (20:55)
[2019-07-24 21:40] VITALS: BP 95/60
[2019-07-25 02:59] VITALS: BP 115/63
[2019-07-25] MEDS: GlipiZIDE 5 MG TABLET PO SCH (06:16)
[2019-07-25] MEDS: MULTIVITAMINS WITH MINERALS, THERAPEUTIC TABLET PO SCH (08:29)
[2019-07-25] MEDS: DOCUSATE SODIUM 250 MG CAPSULE PO SCH ×2 (08:29→16:12)
[2019-07-25 08:30] VITALS: BP 113/54
[2019-07-25] MEDS: BISACODYL 5 MG EC TABLET PO PRN (10:31)
[2019-07-25 16:44] VITALS: BP 131/64
[2019-07-25] MEDS: SERTRALINE HCL 100 MG TABLET PO SCH (20:31)
[2019-07-25] MEDS: ROSUVASTATIN CALCIUM 10 MG TABLET PO SCH (20:31)
[2019-07-26 04:29] LABS: APPEARANCE,URINE CLEAR (CLEAR); BILIRUBIN,URINE NEGATIVE (NEGATIVE); GLUCOSE, URINE (UA) 250 mg/dL (NEGATIVE); KETONES,URINE NEGATIVE (NEGATIVE); LEUKOCYTE ESTERASE ,URINE NEGATIVE (NEGATIVE); NITRATE,URINE NEGATIVE (NEGATIVE); OCCULT BLOOD,URINE NEGATIVE (NEGATIVE); PROTEIN,URINE SEE CONFIRM (NEGATIVE); UROBILINOGEN,URINE 0.2 mg/dL (<=1.0)
[2019-07-26 04:38] LABS: BACTERIA,URINE None Seen /HPF (None Seen); RBC,URINE None Seen /HPF (0-2); SQUAMOUS EPITHELIAL CELL,UR Rare /LPF (None Seen); SULFOSALICYLIC ACID,URINE 2+ (Negative); WBC,URINE None Seen /HPF (0-5)
[2019-07-26] MEDS: GlipiZIDE 5 MG TABLET PO SCH (06:42)
[2019-07-26] MEDS: MULTIVITAMINS WITH MINERALS, THERAPEUTIC TABLET PO SCH (08:03)
[2019-07-26] MEDS: DOCUSATE SODIUM 250 MG CAPSULE PO SCH ×2 (08:04→16:16)
[2019-07-26 08:42] LABS: BASOPHILS % (AUTO) 0.3 % (0.0-2.0); EOSINOPHILS % (AUTO) 1.9 % (1.0-6.0); HEMATOCRIT 32.6 % (41-53); HEMOGLOBIN 11.1 g/dL (13.5-17.5); MEAN CORPUSCULAR HEMOGLOBIN 30.5 pg (26.0-34.0); MEAN CORPUSCULAR HGB CONC 34.2 G/dL (31.0-37.0); MEAN CORPUSCULAR VOLUME 89 fL (80-100); MONOCYTES # (AUTO) 1.1 K/uL (0.1-1.0); MONOCYTES % (AUTO) 15.2 % (2.0-9.0); NEUTROPHILS # (AUTO) 3.8 K/uL (1.8-7.7); NEUTROPHILS % (AUTO) 54.6 % (40.0-70.0); PLATELET COUNT (AUTO) 225 K/uL (150-450); RED BLOOD CELL COUNT(AUTO) 3.66 MIL/uL (4.50-5.90)
[2019-07-26 08:56] LABS: CALCIUM, TOTAL 8.2 mg/dL (8.8-10.5); CREATININE 2.26 mg/dL (0.60-1.30); MAGNESIUM 2.3 mg/dL (1.80-2.40); PHOSPHORUS 3.9 mg/dL (2.5-4.9); POTASSIUM 4.5 mmol/L (3.5-5.1)
[2019-07-26 10:12] VITALS: BP 113/61
[2019-07-26] MEDS: ROSUVASTATIN CALCIUM 10 MG TABLET PO SCH (21:00)
[2019-07-26] MEDS: SERTRALINE HCL 100 MG TABLET PO SCH (21:00)
[2019-07-26 21:16] VITALS: BP 121/72
[2019-07-27 02:24] VITALS: BP 130/70
[2019-07-27] MEDS: GlipiZIDE 5 MG TABLET PO SCH (07:00)
[2019-07-27 08:00] VITALS: BP 144/75
[2019-07-27] MEDS: DOCUSATE SODIUM 250 MG CAPSULE PO SCH ×2 (09:00→17:00)
[2019-07-27] MEDS: MULTIVITAMINS WITH MINERALS, THERAPEUTIC TABLET PO SCH (09:05)
[2019-07-27 17:59] VITALS: BP 119/73
[2019-07-27] MEDS: ROSUVASTATIN CALCIUM 10 MG TABLET PO SCH (20:14)
[2019-07-27 20:40] LABS: GLUCOMETER DEV NAME(LOC) 3EX.; GLUCOSE,POINT OF CARE 230 MG/DL (70-110)
[2019-07-27] MEDS ORDERED: SERTRALINE HCL 100 MG TABLET PO SCH (21:00)
[2019-07-27] MEDS: INSULIN LISPRO 100 UNITS/ML SQ PRN (21:39)
[2019-07-28 03:43] VITALS: BP 116/79
[2019-07-28 07:51] LABS: CALCIUM, TOTAL 8.4 mg/dL (8.8-10.5); CREATININE 2.14 mg/dL (0.60-1.30); MAGNESIUM 2.5 mg/dL (1.80-2.40); PHOSPHORUS 4.1 mg/dL (2.5-4.9); POTASSIUM 4.6 mmol/L (3.5-5.1)
[2019-07-28 08:00] VITALS: BP 144/70
[2019-07-28] MEDS: MULTIVITAMINS WITH MINERALS, THERAPEUTIC TABLET PO SCH (08:07)
[2019-07-28] MEDS: DOCUSATE SODIUM 250 MG CAPSULE PO SCH (08:10)
[2019-07-28] MEDS: INSULIN LISPRO 100 UNITS/ML SQ PRN ×2 (11:18→21:09)
[2019-07-28 11:23] LABS: GLUCOMETER DEV NAME(LOC) 3EX.; GLUCOSE,POINT OF CARE 257 MG/DL (70-110)
[2019-07-28] MEDS: ROSUVASTATIN CALCIUM 10 MG TABLET PO SCH (20:50)
[2019-07-28] MEDS: SERTRALINE HCL 100 MG TABLET PO SCH (20:50)
[2019-07-28] MEDS ORDERED: SERTRALINE HCL 50 MG TABLET PO SCH (21:00)
[2019-07-28 21:04] LABS: GLUCOMETER DEV NAME(LOC) 3EX.; GLUCOSE,POINT OF CARE 222 MG/DL (70-110)
[2019-07-29 02:15] VITALS: BP 160/78
[2019-07-29] MEDS: MULTIVITAMINS WITH MINERALS, THERAPEUTIC TABLET PO SCH (08:57)
[2019-07-29] MEDS: LinaGLIPtin 5 MG TABLET PO SCH (08:58)
[2019-07-29] MEDS: BISACODYL 5 MG EC TABLET PO PRN (08:59)
[2019-07-29 09:54] VITALS: BP 161/73
[2019-07-29] MEDS: INSULIN LISPRO 100 UNITS/ML SQ PRN ×2 (12:24→21:39)
[2019-07-29 12:40] LABS: GLUCOMETER DEV NAME(LOC) 3EX.; GLUCOSE,POINT OF CARE 161 MG/DL (70-110)
[2019-07-29 16:40] VITALS: BP 138/82
[2019-07-29] MEDS: SERTRALINE HCL 100 MG TABLET PO SCH (20:23)
[2019-07-29] MEDS: ROSUVASTATIN CALCIUM 10 MG TABLET PO SCH (20:23)
[2019-07-29 22:15] LABS: GLUCOMETER DEV NAME(LOC) 3EX.; GLUCOSE,POINT OF CARE 201 MG/DL (70-110)
[2019-07-30 07:49] LABS: CALCIUM, TOTAL 8.9 mg/dL (8.8-10.5); CREATININE 2.01 mg/dL (0.60-1.30); POTASSIUM 4.4 mmol/L (3.5-5.1)
[2019-07-30] MEDS: MULTIVITAMINS WITH MINERALS, THERAPEUTIC TABLET PO SCH (08:30)
[2019-07-30] MEDS: LinaGLIPtin 5 MG TABLET PO SCH (08:34)
[2019-07-30 10:10] VITALS: BP 164/70
[2019-07-30] MEDS: INSULIN LISPRO 100 UNITS/ML SQ PRN (11:08)
[2019-07-30 16:41] VITALS: BP 152/74
[2019-07-30 17:21] LABS: GLUCOMETER DEV NAME(LOC) 3EX.; GLUCOSE,POINT OF CARE 160 MG/DL (70-110)
[2019-07-30] MEDS ORDERED: SERT100T12 PO ×2 (18:24→18:25)
[2019-07-30] MEDS ORDERED: MULT-1239 PO (18:27)
[2019-07-30] MEDS ORDERED: LINA5TAB PO (18:28)
[2019-07-30] MEDS ORDERED: ROSU10TA22 PO (18:28)
[2019-07-30] MEDS ORDERED: AMLO5TAB9 PO (18:28)
[2019-07-31] MEDS ORDERED: AmLODIPine BESYLATE 5 MG TABLET PO SCH (09:00)
== END 2019-07-30 19:20 | disposition home or self-care (01) | DRG 885 ==
LOC: EMS 11:37 → 3EX 17:57
PROVIDERS: ADMIT Psychiatry & Neurology Psychiatry; ATTEND Psychiatry & Neurology Psychiatry
DX: F33.2 Major depressive disorder, recurrent severe without psychotic features (principal); N17.9 Acute kidney failure, unspecified; N18.9 Chronic kidney disease, unspecified; E11.65 Type 2 diabetes mellitus with hyperglycemia; E87.1 Hypo-osmolality and hyponatremia; R45.851 Suicidal ideations; D50.9 Iron deficiency anemia, unspecified; E11.22 Type 2 diabetes mellitus with diabetic chronic kidney disease; E78.5 Hyperlipidemia, unspecified; R45.87 Impulsiveness; R79.89 Other specified abnormal findings of blood chemistry; M79.605 Pain in left leg; I12.9 Hypertensive chronic kidney disease with stage 1 through stage 4 chronic kidney disease, or unspecified chronic kidney disease; K59.00 Constipation, unspecified; Z59.0 Homelessness; Z79.899 Other long term (current) drug therapy; Z80.0 Family history of malignant neoplasm of digestive organs; Z87.891 Personal history of nicotine dependence; Z91.19 Patient's noncompliance with other medical treatment and regimen; Z91.5 Personal history of self-harm
CPT/HCPCS: 76770; 80074; 82043; 82570; 82728; 83036; 83540; 83550; 83735; 84100; 84156; 84300; 84439; 84443; 84540; 86592; G0378; G0480